=== PATIENT | female | born 1975 | race African-American/Black ===

== ENCOUNTER 2016-11-17 10:07 | Emergency (ER) | payer MEDICAID, SELFPAY ==
[2016-11-17] MEDS ORDERED: Lorazepam 2 MG/ML VIAL ONE (10:59)
[2016-11-17 11:32] LABS: #Basophils 0.1 thou/uL (0.0-0.2); #Eosinphils 0.1 thou/uL (0.0-0.7); #Lymphocytes 2.4 thou/uL (1.20-3.40); #Monocytes 0.4 thou/uL (0.11-0.59); #Neutrophils 3.5 thou/uL (1.40-6.50); %Basophils 0.8 % (0.0-1.0); %Eosinophils 1.5 % (0.0-10.0); %Lymphocytes 37.6 % (21.0-51.0); %Monocytes 6.5 % (0.0-10.0); Hematocrit 27.5 % (36.0-47.0); Mean Platelet Volume 9.7 fL (7.4-10.4); Red Blood Cell (RBC) Count 4.01 mill/uL (4.20-5.40); White Blood Cell (WBC) Count 6.4 thou/uL (4.8-10.8)
[2016-11-17 11:37] LABS: ALT (SGPT) 8 U/L (8-55); AST (SGOT) 14 U/L (5-34); Alkaline Phosphatase 70 U/L (40-150); Anion Gap 9 mmol/L (10-20); BUN (Urea Nitrogen) 4 mg/dL (7.0-18.7); Bilirubin, Total 0.3 mg/dL (0.2-1.2); Calc. Creatinine Clearance 0 mL/min (70-130); Calcium 8.8 mg/dL (7.8-10.44); Carbon Dioxide 24 mmol/L (22-29); Chloride 108 mmol/L (98-107); Estimated GFR-MDRD Greater than 90; Globulin 3.9 g/dL (2.4-3.5); Lipase 40 U/L (8-78); Protein, Total 7.7 g/dL (6.0-8.3)
[2016-11-17 11:37] LABS: Bilirubin Negative (Negative); Blood, Urine Negative (Negative); Glucose, Urine (Dipstick) Negative (Negative); Ketone, Urine Negative (Negative); Nitrite Negative (Negative); Protein, Urine (Dipstick) Negative (Neg-Trace); Urobilinogen 0.2 mg/dL (0.2-1.0)
[2016-11-17 11:48] LABS: Bacteria/HPF 3+ HPF (None Seen); RBC/HPF None Seen HPF (0-3)
[2016-11-17 11:49] LABS: Hyaline Casts/LPF NONE SEEN LPF (0-3 Hyaline)
[2016-11-17] MEDS ORDERED: Dicyclomine HCl 20 mg/2 ml Ampule ONE (11:50)
[2016-11-17 11:51] LABS: Elliptocytes SLIGHT = 2-5 cells (100X) (0-1/hpf); Hypochromia MODERATE=16-30 cells (100X) (0-5/hpf); Microcytosis MODERATE=15-30 cells (100X) (0-5/hpf); Ovalocytes SLIGHT = 2-5 cells (100X) (0-1/hpf); Polychromasia SLIGHT = 2-3 cells (100X) (0-2/hpf)
== END 2016-11-17 13:12 | disposition home or self-care (01) ==
LOC: ERS 10:07
DX: R10.9 Unspecified abdominal pain (principal); D64.9 Anemia, unspecified; F41.9 Anxiety disorder, unspecified
CPT/HCPCS: 80053; 81003; 81015; 81025; 83690; 85025; 96361; 96372; 96374; J2060

== ENCOUNTER 2017-04-29 17:52 | Emergency (ER) | payer SELFPAY ==
[2017-04-29] MEDS ORDERED: HYDROcodone/Acetaminophen 5/325 mg Tablet ONE (19:17)
--- NOTE | 2017-04-29 20:31 | RAD ---
FOUR VIEWS RIGHT KNEE: 04/29/17 HISTORY: Pain x3 days. COMPARISON: None. FINDINGS: No significant joint fluid. Joint spaces are preserved. No fracture. IMPRESSION: Unremarkable four views right knee. POS: [facility]
--- NOTE | 2017-04-29 21:15 | ULT ---
RIGHT LOWER EXTREMITY VENOUS DOPPLER WITH SPECTRAL ANALYSIS AND COLOR FLOW EVALUATION 04/29/17 HISTORY: Right lower extremity pain, swelling. Patient has fever. FINDINGS: March scale, color flow, doppler evaluation, with spectral analysis of the right lower extremity venou s structures is performed with 2D imaging. The distal right lower extremity superficial femoral vein is not well seen on march scale imaging limiting evaluation. While there is flow within this vein, a n onocclusive DVT cannot be entirely excluded given difficulty in visualization. There is otherwise nor mal lumen compressibility, flow and augmentation of the visualized deep venous structures right lower extremity. There is an anechoic fluid collection seen just above the level of the patella measuring 5.9 cm x 1.1 cm x 3.8 cm. This does not abut the patella on the provided images, and I am unsure based on provide d images whether this represents a joint effusion or fluid just above the level of the knee in the lizarraga prapatellar location. IMPRESSION: 1. Nonvisualization of distal right lower extremity superficial femoral vein on march scale imagi ng, but there is flow in this vein. While nonocclusive DVT cannot be entirely excluded, there is cert ainly no occlusive DVT. There is no evidence of a DVT involving the remaining visualized deep venous structures right lower extremity. 2. Fluid in a suprapatellar location. Based on provided images, I am unable to discern whether t his represents fluid in the suprapatellar bursa or whether this represents fluid in the subcutaneous soft tissues. POS: [facility]
[2017-04-29] MEDS ORDERED: Lidocaine 1% w/Epinephrine 1:100K 20 ML VIAL ONE (21:56)
[2017-04-29] MEDS ORDERED: Morphine 4 MG/ML VIAL ONE (22:00)
[2017-04-29 22:23] LABS: Hypochromia MODERATE=16-30 cells (100X) (0-5/hpf)
[2017-04-29 22:24] LABS: #Eosinphils 0.1 thou/uL (0.0-0.7); #Lymphocytes 3.9 thou/uL (1.20-3.40); #Monocytes 0.7 thou/uL (0.11-0.59); #Neutrophils 6.5 thou/uL (1.40-6.50); %Basophils 0.2 % (0.0-1.0); %Eosinophils 1.2 % (0.0-10.0); %Lymphocytes 34.9 % (21.0-51.0); %Monocytes 5.9 % (0.0-10.0); %Neutrophils 57.8 % (42.0-75.0); Hemoglobin 8.1 g/dL (12.0-16.0); MDiff Complete? YES; Mean Corpuscular HGB CONC 27.9 g/dL (32.0-36.0); Mean Corpuscular Hemoglobin 19.4 pg (27.0-31.0); Mean Corpuscular Volume 69.3 fl (81.0-99.0); Mean Platelet Volume 10.3 fL (7.4-10.4); Microcytosis SLIGHT = 6-15 cells (100X) (0-5/hpf); PLT Morphology Comment Appears Increased; Platelet Count 384 thou/uL (130-400); RBC Distribution Width 18.6 % (11.5-14.5); Red Blood Cell (RBC) Count 4.19 mill/uL (4.20-5.40); White Blood Cell (WBC) Count 11.2 thou/uL (4.8-10.8)
[2017-04-29 22:26] LABS: ALT (SGPT) 15 U/L (8-55); AST (SGOT) 20 U/L (5-34); Albumin 3.7 g/dL (3.5-5.0); Alkaline Phosphatase 88 U/L (40-150); Anion Gap 13 mmol/L (10-20); BUN (Urea Nitrogen) 8 mg/dL (7.0-18.7); Bilirubin, Total 0.2 mg/dL (0.2-1.2); Calc. Creatinine Clearance 0 mL/min (70-130); Calcium 8.9 mg/dL (7.8-10.44); Carbon Dioxide 19 mmol/L (22-29); Chloride 107 mmol/L (98-107); Estimated GFR-MDRD Greater than 90; Glucose 91 mg/dL (70-105); Potassium 4.5 mmol/L (3.5-5.1); Protein, Total 7.7 g/dL (6.0-8.3); Sodium 134 mmol/L (136-145)
[2017-04-29] MEDS ORDERED: Lorazepam 1 MG TAB ONE ×2 (22:37→22:40)
[2017-04-30 00:08] LABS: Synovial Fluid, Glucose 103 mg/dL (Not Available); Synovial Fluid, Protein 3.3 g/dL (Not Available)
[2017-04-30 00:13] LABS: Synovial Fluid, Uric Acid Less than 5.0 mg/dL (Not Available)
[2017-04-30 00:15] LABS: Body Fluid Source SYNOVIAL FLUID
[2017-04-30 00:16] LABS: BF Color Yellow; Clarity Clear (Clear); Tube # EDTA
[2017-04-30 00:18] LABS: BF WBC/Nonhematics Ct. - Manua 60 /cumm
[2017-04-30 00:20] LABS: BF RBC Count - Manual 1950 /cumm
[2017-04-30 00:32] LABS: BF Segmented Neutrophils 7 %; Cell Count Non Hematic 45 %; Lymphocytes 48 %
== END 2017-04-30 00:50 | disposition home or self-care (01) ==
LOC: ERS 17:52
DX: M25.461 Effusion, right knee (principal); D64.9 Anemia, unspecified; F41.9 Anxiety disorder, unspecified
CPT/HCPCS: 20611; 36415; 80053; 82945; 83605; 84157; 84560; 85025; 85060; 85652; 86140; 87070; 87205; 89051; 96372; J2001; J2270

== ENCOUNTER 2017-04-30 11:05 | Emergency (ER) | payer SELFPAY ==
[2017-04-30] MEDS ORDERED: Morphine 10 MG/ML VIAL ONE (11:59)
== END 2017-04-30 12:40 | disposition home or self-care (01) ==
LOC: ERS 11:05
DX: M25.561 Pain in right knee (principal); D64.9 Anemia, unspecified; F41.9 Anxiety disorder, unspecified
CPT/HCPCS: 96372; J2270

== ENCOUNTER 2017-08-18 07:17 | Emergency (ER) | payer SELFPAY ==
[2017-08-18 08:46] LABS: Hemoglobin 7.7 g/dL (12.0-16.0); Mean Corpuscular Hemoglobin 20.4 pg (27.0-31.0); Mean Platelet Volume 8.6 fL (7.4-10.4); Platelet Count 422 thou/uL (130-400); RBC Distribution Width 17.9 % (11.5-14.5); Red Blood Cell (RBC) Count 3.76 mill/uL (4.20-5.40); White Blood Cell (WBC) Count 7.5 thou/uL (4.8-10.8)
[2017-08-18 08:51] LABS: #Eosinphils 0.1 thou/uL (0.0-0.7); #Monocytes 0.4 thou/uL (0.11-0.59); %Basophils 0.6 % (0.0-1.0); %Lymphocytes 39.8 % (21.0-51.0); %Monocytes 4.7 % (0.0-10.0); %Neutrophils 53.9 % (42.0-75.0)
[2017-08-18 08:56] LABS: ALT (SGPT) 10 U/L (8-55); AST (SGOT) 12 U/L (5-34); Albumin 3.8 g/dL (3.5-5.0); Alkaline Phosphatase 74 U/L (40-150); Anion Gap 13 mmol/L (10-20); BUN (Urea Nitrogen) 5 mg/dL (7.0-18.7); Bilirubin, Total 0.2 mg/dL (0.2-1.2); Calc. Creatinine Clearance 0 mL/min (70-130); Calcium 8.8 mg/dL (7.8-10.44); Carbon Dioxide 23 mmol/L (22-29); Chloride 110 mmol/L (98-107); Estimated GFR-MDRD Greater than 90; Globulin 3.4 g/dL (2.4-3.5); Glucose 94 mg/dL (70-105); Protein, Total 7.2 g/dL (6.0-8.3); Sodium 142 mmol/L (136-145)
[2017-08-18 09:01] LABS: CKMB 0.7 ng/mL (0-6.6); Troponin I Less than 0.010 ng/mL (< 0.028)
[2017-08-18 09:28] LABS: Hypochromia MODERATE=16-30 cells (100X) (0-5/hpf); MDiff Complete? YES; Microcytosis MODERATE=15-30 cells (100X) (0-5/hpf); Ovalocytes MODERATE= 6-15 cells (100X) (0-1/hpf); Polychromasia SLIGHT = 2-3 cells (100X) (0-2/hpf); Reflex for Review?? NO
--- NOTE | 2017-08-18 09:53 | RAD ---
CHEST 1 VIEW: HISTORY: A 41-year-old female with a history of chest pain and abdominal pain since Tuesday. COMPARISON: 01/09/15. FINDINGS: Monitor leads overlie the chest. The heart size is within normal limits. The lungs are clear. No c onfluent pneumonia, overt edema, or pleural effusion. IMPRESSION: No acute intrathoracic disease. POS: [facility]
[2017-08-18 10:39] LABS: BHCG - Serum Negative (NEGATIVE); Pregs Control Background? CLEAR/WHITE (CLR/WHITE); Pregs Control Bar Appear? YES (CONTROL BAR)
[2017-08-18] MEDS ORDERED: Naproxen 500 MG TAB ONE (11:01)
--- NOTE | 2017-08-18 11:41 | ULT ---
PELVIC ULTRASOUND INCLUDING TRANSABDOMINAL AND TRANSVAGINAL AND VASCULAR DUPLEX WITH COLOR AND SPECTR AL DOPPLER IMAGING: HISTORY: A 41-year-old female with pelvic and peroneal pain for 4 days as well as abnormal vaginal bleeding. FINDINGS: The uterus measures 9.4 x 6.7 x 6.2 cm and is heterogeneous and contains several focal solid echogeni c heterogeneously echogenic masses up to 2.2 x 2.5 cm, evidence for intrauterine fibroids. Endometri um 0.8 cm. Right ovary 2.1 x 1.4 x 3.4 cm with a 0.9 x 1.2 cm follicle cyst. Left ovary 1.5 x 1.6 x 3.2 cm.. Exam is somewhat limited because of body habitus and bowel gas. No abnormal fluid collection. IMPRESSION: Minimally enlarged uterus with multiple intrauterine fibroids. No evidence for other significant acu te process. POS: [facility]
== END 2017-08-18 11:51 | disposition home or self-care (01) ==
LOC: ERS 07:17
DX: D25.9 Leiomyoma of uterus, unspecified (principal); D64.9 Anemia, unspecified; F41.9 Anxiety disorder, unspecified
CPT/HCPCS: 36415; 71045; 76856; 80053; 82553; 84484; 84703; 85025; 93005

== ENCOUNTER 2017-11-07 18:18 | Emergency (ER) | payer SELFPAY ==
--- NOTE | 2017-11-07 19:15 | RAD ---
LEFT FOOT THREE VIEWS: INDICATIONS: Pain. FINDINGS: There is a calcaneal enthesophyte at the plantar aspect. Lisfranc joint is maintained. No fracture or dislocation. IMPRESSION: No acute osseous abnormality. POS: [facility]
[2017-11-07] MEDS ORDERED: Ketorolac Tromethamine 30 MG/ML VIAL ONE (19:27)
== END 2017-11-07 19:45 | disposition home or self-care (01) ==
LOC: ERS 18:18
DX: S90.32XA Contusion of left foot, initial encounter (principal); D64.9 Anemia, unspecified; F41.9 Anxiety disorder, unspecified; V03.90XA Pedestrian on foot injured in collision with car, pick-up truck or van, unspecified whether traffic or nontraffic accident, initial encounter
CPT/HCPCS: 96372; J1885

== ENCOUNTER 2022-03-05 15:33 | Inpatient (IN) | payer OTHER ==
[~2022-03-05 15:33] MED LIST: Iopamidol-370 76% 500 ML 1 ML ONE
[2022-03-05] MEDS ORDERED: Ketorolac Tromethamine 30 MG/ML VIAL ONE (17:12)
[2022-03-05 17:13] LABS: Mean Corpuscular HGB CONC 31.1 g/dL (32.0-36.0); Mean Corpuscular Hemoglobin 22.6 pg (27.0-31.0); Mean Corpuscular Volume 72.5 fl (78.0-98.0); Mean Platelet Volume 9.1 fL (7.4-10.4); Platelet Count 412 10x3/uL (130-400); RBC Distribution Width 18.4 % (11.5-14.5); Red Blood Cell (RBC) Count 3.98 mill/uL (4.20-5.40); White Blood Cell (WBC) Count 8.3 10x3/uL (4.8-10.8)
[2022-03-05 17:32] LABS: ALT (SGPT) 11 U/L (8-55); AST (SGOT) 14 U/L (5-34); Albumin 3.8 g/dL (3.5-5.0); Alkaline Phosphatase 95 U/L (40-110); Anion Gap 10 mmol/L (10-20); BUN (Urea Nitrogen) 6 mg/dL (7.0-18.7); Bilirubin, Total 0.3 mg/dL (0.2-1.2); Calc. Creatinine Clearance 0 mL/min (70-130); Carbon Dioxide 25 mmol/L (22-29); Chloride 108 mmol/L (98-107); Estimated GFR 109; Globulin 3.6 g/dL (2.4-3.5); Glucose 89 mg/dL (70-105); Potassium 4.2 mmol/L (3.5-5.1); Protein, Total 7.4 g/dL (6.0-8.3); Sodium 139 mmol/L (136-145)
[2022-03-05 17:35] LABS: #Eosinphils 0.2 thou/uL (0.0-0.7); #Lymphocytes 3.5 thou/uL (1.20-3.40); #Monocytes 0.6 thou/uL (0.11-0.59); %Basophils 0.3 % (0.0-1.0); %Eosinophils 2.2 % (0.0-10.0); %Lymphocytes 42.1 % (21.0-51.0); %Monocytes 6.6 % (0.0-10.0); %Neutrophils 48.7 % (42.0-75.0); MDiff Complete? YES; Microcytosis SLIGHT = 6-15 cells (100X) (0-5/hpf); Platelet Morphology Comment Appears Increased
[2022-03-05] MEDS ORDERED: Aspirin Chewable 81 MG TAB ONE ×2 (18:30→18:31)
[2022-03-05] MEDS ORDERED: Ondansetron ODT 4 MG TAB PO PRN (19:55)
[2022-03-05] MEDS ORDERED: Ondansetron PF 4 MG/2 ML Vial IVP PRN (19:55)
[2022-03-05] MEDS ORDERED: Morphine 2 MG/ML VIAL ONE (21:13)
[2022-03-05 21:20] LABS: Hemoglobin A1c 5.7 % (4.0-6.0); Phosphorus 3.6 mg/dL (2.3-4.7)
[2022-03-05 21:21] LABS: Magnesium 1.7 mg/dL (1.6-2.6)
[2022-03-05] MEDS ORDERED: Magnesium 2 GM/50 ML(in water) 2 GM in Premix Bag 1 BAG IVPB SCH (22:00)
[2022-03-05 22:15] LABS: Hemoglobin 8.8 g/dL (12.0-16.0)
[2022-03-05 22:39] LABS: Troponin I Less than 0.010 ng/mL (< 0.028)
[2022-03-05 22:47] VITALS: BMI 50.4
[2022-03-05] MEDS: Ketorolac Tromethamine 30 MG/ML VIAL IVP PRN (22:55)
[2022-03-06 02:00] LABS: Troponin I Less than 0.010 ng/mL (< 0.028)
[2022-03-06] MEDS: Fioricet 325/50/40 mg Tablet PO PRN ×2 (03:24→15:15)
[2022-03-06 07:33] LABS: #Eosinphils 0.1 thou/uL (0.0-0.7); #Lymphocytes 2.5 thou/uL (1.20-3.40); #Monocytes 0.5 thou/uL (0.11-0.59); #Neutrophils 4.3 thou/uL (1.40-6.50); %Basophils 0.4 % (0.0-1.0); %Eosinophils 1.8 % (0.0-10.0); %Lymphocytes 33.2 % (21.0-51.0); %Monocytes 6.8 % (0.0-10.0); %Neutrophils 57.8 % (42.0-75.0); Hemoglobin 9.5 g/dL (12.0-16.0); Mean Corpuscular HGB CONC 32.1 g/dL (32.0-36.0); Mean Corpuscular Hemoglobin 23.6 pg (27.0-31.0); Mean Corpuscular Volume 73.6 fl (78.0-98.0); Platelet Count 387 10x3/uL (130-400); RBC Distribution Width 18.5 % (11.5-14.5); White Blood Cell (WBC) Count 7.4 10x3/uL (4.8-10.8)
[2022-03-06 07:53] LABS: Anion Gap 15 mmol/L (10-20); BUN (Urea Nitrogen) 8 mg/dL (7.0-18.7); Calc. Creatinine Clearance 216 mL/min (70-130); Calcium 8.9 mg/dL (7.8-10.44); Carbon Dioxide 22 mmol/L (22-29); Chloride 108 mmol/L (98-107); Estimated GFR 109; Glucose 87 mg/dL (70-105); Sodium 141 mmol/L (136-145)
[2022-03-06] MEDS: Ketorolac Tromethamine 30 MG/ML VIAL IVP PRN ×2 (08:39→20:44)
[2022-03-07] MEDS ORDERED: Morphine 4 MG/ML VIAL SLOW IVP SCH (01:00)
[2022-03-07 05:12] LABS: #Eosinphils 0.1 thou/uL (0.0-0.7); #Lymphocytes 3.1 thou/uL (1.20-3.40); #Monocytes 0.6 thou/uL (0.11-0.59); #Neutrophils 4.1 thou/uL (1.40-6.50); %Basophils 0.1 % (0.0-1.0); %Eosinophils 1.9 % (0.0-10.0); %Lymphocytes 39.2 % (21.0-51.0); %Monocytes 7.1 % (0.0-10.0); %Neutrophils 51.7 % (42.0-75.0); Hemoglobin 8.9 g/dL (12.0-16.0); Mean Corpuscular HGB CONC 30.8 g/dL (32.0-36.0); Mean Corpuscular Hemoglobin 22.5 pg (27.0-31.0); Mean Corpuscular Volume 73.1 fl (78.0-98.0); Mean Platelet Volume 9.6 fL (7.4-10.4); Platelet Count 347 10x3/uL (130-400); RBC Distribution Width 18.7 % (11.5-14.5); Red Blood Cell (RBC) Count 3.95 mill/uL (4.20-5.40)
[2022-03-07 05:33] LABS: Anion Gap 12 mmol/L (10-20); BUN (Urea Nitrogen) 13 mg/dL (7.0-18.7); Calc. Creatinine Clearance 234 mL/min (70-130); Calcium 8.4 mg/dL (7.8-10.44); Carbon Dioxide 22 mmol/L (22-29); Chloride 110 mmol/L (98-107); Estimated GFR 111; Glucose 98 mg/dL (70-105); Potassium 3.9 mmol/L (3.5-5.1); Sodium 140 mmol/L (136-145)
[2022-03-07] MEDS: Ketorolac Tromethamine 30 MG/ML VIAL IVP PRN ×2 (05:33→11:41)
[2022-03-07] MEDS: Acetaminophen 325 MG TAB PO PRN ×2 (08:14→14:23)
[2022-03-07] MEDS ORDERED: Lorazepam 1 MG TAB PO PRN (09:47)
[2022-03-07] MEDS ORDERED: Magnevist 469MG/ML 20 ML VIAL ONE (12:41)
[2022-03-07] MEDS ORDERED: Chloraseptic Spray 180 ml Bottle PO PRN (14:53)
[2022-03-07] MEDS ORDERED: Meropenem 1 GM in Sodium Chloride 0.9% 100 ML IVPB SCH (15:00)
[2022-03-07] MEDS ORDERED: cefTRIAXone\\ROCEPHIN 2 GM in Sodium Chloride 0.9% 100 ML IVPB SCH (15:00)
[2022-03-07] MEDS ORDERED: metroNIDAZOLE 500 MG TAB PO SCH (15:00)
[2022-03-07] MEDS: Ketorolac Tromethamine 30 MG/ML VIAL IVP SCH ×2 (15:40→20:29)
[2022-03-07] MEDS: Heparin 5,000 UNITS/ML VIAL SC SCH ×2 (15:41→20:31)
[2022-03-07] MEDS: HYDROcodone/Acetaminophen 5/325 mg Tablet PO PRN (23:54)
[2022-03-07] MEDS: Meropenem 1 GM in Sodium Chloride 0.9% 100 ML IVPB SCH (23:56)
[2022-03-08 05:10] LABS: #Eosinphils 0.1 thou/uL (0.0-0.7); #Monocytes 0.5 thou/uL (0.11-0.59); #Neutrophils 4.5 thou/uL (1.40-6.50); %Basophils 0.2 % (0.0-1.0); %Eosinophils 1.7 % (0.0-10.0); %Lymphocytes 36.7 % (21.0-51.0); %Monocytes 6.5 % (0.0-10.0); %Neutrophils 54.8 % (42.0-75.0); Hemoglobin 8.6 g/dL (12.0-16.0); Mean Corpuscular HGB CONC 30.1 g/dL (32.0-36.0); Mean Corpuscular Hemoglobin 21.9 pg (27.0-31.0); Mean Corpuscular Volume 72.7 fl (78.0-98.0); Mean Platelet Volume 9.7 fL (7.4-10.4); Platelet Count 354 10x3/uL (130-400); RBC Distribution Width 18.7 % (11.5-14.5); Red Blood Cell (RBC) Count 3.92 mill/uL (4.20-5.40); White Blood Cell (WBC) Count 8.2 10x3/uL (4.8-10.8)
[2022-03-08 05:25] LABS: Anion Gap 12 mmol/L (10-20); BUN (Urea Nitrogen) 9 mg/dL (7.0-18.7); Calc. Creatinine Clearance 216 mL/min (70-130); Calcium 8.8 mg/dL (7.8-10.44); Carbon Dioxide 23 mmol/L (22-29); Chloride 109 mmol/L (98-107); Estimated GFR 109; Glucose 95 mg/dL (70-105); Potassium 3.9 mmol/L (3.5-5.1); Sodium 140 mmol/L (136-145)
[2022-03-08] MEDS: Heparin 5,000 UNITS/ML VIAL SC SCH (06:15)
[2022-03-08] MEDS: Meropenem 1 GM in Sodium Chloride 0.9% 100 ML IVPB SCH ×3 (08:17→23:46)
[2022-03-08] MEDS: HYDROcodone/Acetaminophen 5/325 mg Tablet PO PRN ×4 (08:17→23:49)
[2022-03-08] MEDS: Saccharomyces boulardii 250 MG CAP PO SCH (08:18)
[2022-03-08] MEDS ORDERED: Amlodipine 5 MG TAB PO SCH (11:00)
[2022-03-08] MEDS: Acetaminophen 325 MG TAB PO PRN (20:54)
[2022-03-09] MEDS: Saccharomyces boulardii 250 MG CAP PO SCH (09:28)
[2022-03-09] MEDS: HYDROcodone/Acetaminophen 5/325 mg Tablet PO PRN ×3 (09:28→19:20)
[2022-03-09] MEDS: Aspirin 81 mg Enteric Coated Tablet PO SCH (09:28)
[2022-03-09] MEDS: Amlodipine 5 MG TAB PO SCH (09:28)
[2022-03-09] MEDS: Meropenem 1 GM in Sodium Chloride 0.9% 100 ML IVPB SCH ×2 (09:28→16:23)
[2022-03-09] MEDS ORDERED: Loratadine 10 MG TAB PO SCH (15:00)
[2022-03-09] MEDS: Benzonatate 100 MG CAP PO SCH ×2 (16:23→20:39)
[2022-03-09] MEDS: Ferrous Sulfate 325 MG TAB PO SCH (16:23)
[2022-03-10] MEDS: Meropenem 1 GM in Sodium Chloride 0.9% 100 ML IVPB SCH ×3 (00:27→16:55)
[2022-03-10] MEDS: HYDROcodone/Acetaminophen 5/325 mg Tablet PO PRN ×3 (05:11→18:33)
[2022-03-10] MEDS: Ferrous Sulfate 325 MG TAB PO SCH ×3 (08:35→16:54)
[2022-03-10] MEDS: Benzonatate 100 MG CAP PO SCH ×3 (08:35→19:51)
[2022-03-10] MEDS: Aspirin 81 mg Enteric Coated Tablet PO SCH (08:35)
[2022-03-10] MEDS: Amlodipine 5 MG TAB PO SCH (08:35)
[2022-03-10] MEDS: Loratadine 10 MG TAB PO SCH (08:36)
[2022-03-10] MEDS: Saccharomyces boulardii 250 MG CAP PO SCH (08:37)
[2022-03-10 09:14] LABS: Anion Gap 15 mmol/L (10-20); BUN (Urea Nitrogen) 9 mg/dL (7.0-18.7); Calc. Creatinine Clearance 238 mL/min (70-130); Carbon Dioxide 24 mmol/L (22-29); Chloride 107 mmol/L (98-107); Estimated GFR 111; Glucose 82 mg/dL (70-105); Potassium 4.8 mmol/L (3.5-5.1); Sodium 141 mmol/L (136-145)
[2022-03-10 12:22] LABS: Eosinophils 4 % (0-10); Hemoglobin 8.9 g/dL (12.0-16.0); Hypochromia SLIGHT = 6-15 cells (100X) (0-5/hpf); Lymphocytes 57 % (21-51); MDiff Complete? YES; Mean Corpuscular HGB CONC 29.6 g/dL (32.0-36.0); Mean Corpuscular Hemoglobin 21.6 pg (27.0-31.0); Mean Corpuscular Volume 73.1 fl (78.0-98.0); Mean Platelet Volume 10.1 fL (7.4-10.4); Microcytosis SLIGHT = 6-15 cells (100X) (0-5/hpf); Monocytes 5 % (0-10); Neutrophil 34 % (42-75); Platelet Count 345 10x3/uL (130-400); Platelet Morphology Comment Appears Adequate; Polychromasia SLIGHT = 2-3 cells (100X) (0-2/hpf); RBC Distribution Width 18.9 % (11.5-14.5); Red Blood Cell (RBC) Count 4.13 mill/uL (4.20-5.40); White Blood Cell (WBC) Count 6.5 10x3/uL (4.8-10.8)
[2022-03-10] MEDS: Fioricet 325/50/40 mg Tablet PO PRN (14:53)
[2022-03-10] MEDS ORDERED: Fioricet 325/50/40 mg Tablet PO PRN (19:09)
[2022-03-10] MEDS ORDERED: Ketorolac Tromethamine 30 MG/ML VIAL IVP SCH (19:15)
[2022-03-10] MEDS: diphenhydrAMINE 25 MG in Sodium Chloride 0.9% 50 ML IVPB SCH (23:40)
[2022-03-10] MEDS: Prochlorperazine Edisylate 10 MG in Sodium Chloride 0.9% 50 ML IVPB SCH (23:46)
[2022-03-11] MEDS: Meropenem 1 GM in Sodium Chloride 0.9% 100 ML IVPB SCH ×3 (00:53→18:14)
[2022-03-11] MEDS: diphenhydrAMINE 25 MG in Sodium Chloride 0.9% 50 ML IVPB SCH ×3 (05:26→18:15)
[2022-03-11] MEDS: Prochlorperazine Edisylate 10 MG in Sodium Chloride 0.9% 50 ML IVPB SCH ×3 (06:06→18:16)
[2022-03-11] MEDS: Benzonatate 100 MG CAP PO SCH ×2 (08:37→16:16)
[2022-03-11] MEDS: Loratadine 10 MG TAB PO SCH (08:37)
[2022-03-11] MEDS: Aspirin 81 mg Enteric Coated Tablet PO SCH (08:38)
[2022-03-11] MEDS: Saccharomyces boulardii 250 MG CAP PO SCH (08:38)
[2022-03-11] MEDS: Amlodipine 5 MG TAB PO SCH (08:38)
[2022-03-11] MEDS: HYDROcodone/Acetaminophen 5/325 mg Tablet PO PRN ×2 (08:51→19:29)
[2022-03-11] MEDS: Ferrous Sulfate 325 MG TAB PO SCH ×2 (08:53→16:48)
[2022-03-11 20:33] VITALS: BP 156/82; TEMP 98.3
== END 2022-03-11 19:38 | disposition home or self-care (01) | DRG 158 ==
LOC: ERS 15:33 → 2SW 19:24 → OBSVTOIN 03-07 10:07 → T4-B 03-08 20:15
PROVIDERS: ADMIT Hospitalist; ATTEND Hospitalist
DX: K04.7 Periapical abscess without sinus (principal); L03.211 Cellulitis of face; Z68.43 Body mass index [BMI] 50.0-59.9, adult; Z20.822 Contact with and (suspected) exposure to COVID-19; D50.9 Iron deficiency anemia, unspecified; R03.0 Elevated blood-pressure reading, without diagnosis of hypertension; E66.01 Morbid (severe) obesity due to excess calories; R20.2 Paresthesia of skin; G43.909 Migraine, unspecified, not intractable, without status migrainosus; G93.0 Cerebral cysts; K02.9 Dental caries, unspecified; R05.9 Cough, unspecified; R09.81 Nasal congestion; Z88.6 Allergy status to analgesic agent; Z88.1 Allergy status to other antibiotic agents; Z88.0 Allergy status to penicillin; Z88.8 Allergy status to other drugs, medicaments and biological substances; Z90.49 Acquired absence of other specified parts of digestive tract; Z98.51 Tubal ligation status; Z82.49 Family history of ischemic heart disease and other diseases of the circulatory system; Z83.3 Family history of diabetes mellitus
CPT/HCPCS: 36415; 70450; 70487; 70553; 72141; 80048; 80053; 82550; 83036; 83605; 83735; 84100; 84443; 84484; 85025; 86140; 86850; 86900; 86901; 87040; 87076; 87149; 93005; 96374; 96375; 96376; A9579; G0378; J0780; J1200; J1644; J1650; J1885; J2185; J2270; J2272; J3475; J3490; Q9967; U0003; U0005

== ENCOUNTER 2022-07-27 11:36 | Emergency (ER) | payer OTHER ==
[2022-07-27] MEDS ORDERED: Ketorolac Tromethamine 30 MG/ML VIAL ONE (13:10)
== END 2022-07-27 14:10 | disposition home or self-care (01) ==
LOC: ERS 11:36
DX: K04.7 Periapical abscess without sinus (principal); I10 Essential (primary) hypertension; M25.512 Pain in left shoulder; M79.604 Pain in right leg
CPT/HCPCS: 96372; J1885

== ENCOUNTER 2024-10-21 15:19 | Emergency (ER) | payer SELFPAY ==
[~2024-10-21 15:19] MED LIST changes: -Iopamidol-370 76% 500 ML 1 ML ONE; +Iopamidol-370 76% 500 ML MDV (1 ML CHARGE) ONE
[2024-10-21] MEDS ORDERED: Orphenadrine Citrate 60 MG/2 ML VIAL ONE (17:50)
[2024-10-21 17:59] LABS: #Basophils 0.03 10x3/uL (0.0-0.2); #Eosinophils 0.09 10x3/uL (0.0-0.7); #Monocytes 0.60 10x3/uL (0.11-0.59); #Neutrophils 5.85 10x3/uL (1.40-6.50); %Basophils 0.3 % (0.0-1.0); %Eosinophils 0.9 % (0.0-10.0); %Lymphocytes 36.5 % (21.0-51.0); %Monocytes 5.8 % (0.0-10.0); %Neutrophils 56.1 % (42.0-75.0); Hematocrit 37.2 % (36.0-47.0); Hemoglobin 11.6 g/dL (12.0-16.0); Mean Corpuscular Hemoglobin 26.1 pg (27.0-31.0); Mean Corpuscular Volume 83.6 fL (78.0-98.0); Platelet Count 360 10x3/uL (130-400); Red Blood Cell (RBC) Count 4.45 mill/uL (4.20-5.40); White Blood Cell (WBC) Count 10.41 10x3/uL (4.8-10.8)
[2024-10-21 18:12] LABS: INR-International Normal Ratio 1.0; PTT 29.3 sec (22.9-36.1); Prothrombin Time 13.0 sec (12.0-14.7)
[2024-10-21] MEDS ORDERED: Ondansetron PF 4 MG/2 ML Vial ONE (19:29)
[2024-10-21 20:08] LABS: ALT (SGPT) 13 U/L (Less than 34); AST (SGOT) 22 U/L (11-34); Albumin 3.4 g/dL (3.1-4.5); Alkaline Phosphatase 125 U/L (40-110); Anion Gap 15 mmol/L (10-20); BUN (Urea Nitrogen) 7 mg/dL (9.8-20.1); Bilirubin, Total 0.2 mg/dL (0.3-1.2); Calc. Creatinine Clearance 0 mL/min (70-130); Calcium 8.8 mg/dL (7.8-10.44); Carbon Dioxide 23 mmol/L (22-29); Chloride 109 mmol/L (98-107); Globulin 3.8 g/dL (2.4-3.5); Glucose 88 mg/dL (70-105); Lipase 26 U/L (8-78); Magnesium 1.8 mg/dL (1.6-2.6); Potassium 4.1 mmol/L (3.5-5.1); Sodium 143 mmol/L (136-145)
[2024-10-21 20:19] LABS: BHCG - Serum Negative (NEGATIVE); Pregs Control Background? CLEAR/WHITE (CLR/WHITE); Pregs Control Bar Appear? YES (CONTROL BAR)
== END 2024-10-21 20:26 | disposition home or self-care (01) ==
LOC: ERS 15:19
DX: M79.604 Pain in right leg (principal); R07.9 Chest pain, unspecified
CPT/HCPCS: 36415; 71275; 80053; 83690; 83735; 84484; 84703; 85025; 85610; 85730; 93005; 96374; 96375; 96376; J2360; J2405; J3010